=== PATIENT | female | born 1950 | race Caucasian/White ===

== ENCOUNTER → 2019-06-01 | Outpatient (CLI) | payer MEDICARE | LOC: LAB EV 09:35 → LAB SHORT 09:35 | DX: N39.0 Urinary tract infection, site not specified (principal) | CPT/HCPCS: 87077; 87086; 87186 ==

== ENCOUNTER → 2020-12-10 | Outpatient (CLI) | payer OTHER | END | disposition home or self-care (01) | LOC: LAB 11:10 → LAB SHORT 11:10 | DX: R30.9 Painful micturition, unspecified (principal) | CPT/HCPCS: 87077; 87086; 87186 ==

== ENCOUNTER → 2021-06-19 | Outpatient (CLI) | payer OTHER | LOC: LAB SHORT 15:42 → LAB 15:42 | DX: N39.0 Urinary tract infection, site not specified (principal) | CPT/HCPCS: 87077; 87086; 87186 ==

== ENCOUNTER 2024-10-17 19:00 | Inpatient (IN) | payer OTHER ==
[~2024-10-17] VITALS: Ht 165.1 cm; Wt 66.7 kg
[2024-10-17 20:27] LABS: BASOPHILS ABSOLUTE AUTO 0.03 K/mm3 (0.00-0.23); BASOPHILS PERCENT AUTO 0 % (0-2); EOSINOPHILS PERCENT AUTO 0 % (0-6); Hematocrit 39.5 % (33.0-51.0); Hemoglobin 13.6 g/dL (11.5-16.0); IMMATURE GRAN PERCENT AUTO 1 % (0-1); LYMPHOCYTES ABSOLUTE AUTO 0.29 K/mm3 (0.84-5.20); LYMPHOCYTES PERCENT AUTO 3 % (21-46); MONOCYTES ABSOLUTE AUTO 0.18 K/mm3 (0.16-1.47); MONOCYTES PERCENT AUTO 2 % (4-13); Mean Corpuscular HGB 31.6 pg (26.0-34.0); Mean Corpuscular HGB Conc 34.4 g/dL (31.5-36.5); Mean Corpuscular Volume 92 fL (80-100); Mean Platelet Volume 10.1 fL (9.1-12.4); NEUTROPHILS ABSOLUTE AUTO 10.15 K/mm3 (1.96-9.15); NEUTROPHILS PERCENT AUTO 94 % (41-73); Platelet Count 303 K/mm3 (150-400); RDW Coefficient Variation 12.9 % (11.7-14.2); RDW Standard Deviation 43.3 fL (35.1-46.3); White Blood Cell Count 10.75 K/mm3 (4.00-11.30)
[2024-10-17 20:47] LABS: Albumin, Blood 3.9 g/dL (3.4-5.0); Albumin/Globulin Ratio 1.1 (0.8-1.8); Bilirubin, Total 0.3 mg/dL (0.1-1.0); Bun/Creatinine Ratio 15.9 (12.0-20.0); Calcium, Blood 9.5 mg/dL (8.5-10.1); Creatinine, Blood 0.88 mg/dL (0.40-1.00); Globulin, Blood 3.5 g/dL (2.2-4.0); Potassium, Blood 3.4 mmol/L (3.5-5.5); Total Protein, Blood 7.4 g/dL (6.4-8.2)
[2024-10-18] MEDS ORDERED: Ibuprofen 600 MG Tab PO ONE (02:15)
[2024-10-18] MEDS ORDERED: FLU VACC TS2024-25(6MOS UP)/PF 45 MCG/0.5 ML SYRINGE IM ONE (02:50)
[2024-10-18] MEDS ORDERED: Guaifenesin/Dextromethorphan Syrup 5 ML UDC PO PRN (02:50)
[2024-10-18] MEDS ORDERED: Ondansetron HCl 2 MG / ML 2ML Vial IV PRN (02:55)
[2024-10-18] MEDS ORDERED: Ipratropium/Albuterol SulF 2.5-0.5MG/3 ML Amp INH PRN (02:55)
[2024-10-18] MEDS ORDERED: Insulin Glargine-Yfgn 100 Unit/mL 3 ML SYR SC SCH (03:00)
[2024-10-18] MEDS ORDERED: Azithromycin 500 MG in NS 250 ML IV SCH (03:44)
[2024-10-18] MEDS ORDERED: Potassium Chloride 40 MEQ in NS 250 ML IV ONE (03:45)
[2024-10-18 03:57] LABS: Influenza A, PCR NEGATIVE (NEGATIVE); Influenza B, PCR NEGATIVE (NEGATIVE); Resp Syncytial Virus, PCR NEGATIVE (NEGATIVE); SARS-Cov-2 (COVID-19) PCR, MMC NEGATIVE (NEGATIVE)
[2024-10-18] MEDS ORDERED: LOSA50 PO (03:59)
[2024-10-18] MEDS ORDERED: IPRAT-ALBUT 0.5-3 ML INH (04:00)
[2024-10-18] MEDS ORDERED: ALBU90OI INH (04:00)
[2024-10-18] MEDS ORDERED: MethylPREDNISolone Sod Succ 125 MG Vial IV SCH (06:00)
[2024-10-18 06:33] LABS: Albumin, Blood 3.6 g/dL (3.4-5.0); Albumin/Globulin Ratio 1.3 (0.8-1.8); Bilirubin, Total 0.4 mg/dL (0.1-1.0); Bun/Creatinine Ratio 19.8 (12.0-20.0); Calcium, Blood 8.9 mg/dL (8.5-10.1); Creatinine, Blood 0.66 mg/dL (0.40-1.00); Globulin, Blood 2.8 g/dL (2.2-4.0); Total Protein, Blood 6.4 g/dL (6.4-8.2)
[2024-10-18] MEDS ORDERED: Albuterol HFA200 ACT/6.7 GM INH INH PRN (06:35)
[2024-10-18 06:38] LABS: Potassium, Blood 6.7 mmol/L (3.5-5.5)
[2024-10-18 07:00] LABS: BASOPHILS ABSOLUTE AUTO 0.05 K/mm3 (0.00-0.23); BASOPHILS PERCENT AUTO 0 % (0-2); EOSINOPHILS PERCENT AUTO 0 % (0-6); Hematocrit 36.1 % (33.0-51.0); Hemoglobin 12.6 g/dL (11.5-16.0); IMMATURE GRAN ABSOLUTE AUTO 0.24 K/mm3 (0.00-0.10); IMMATURE GRAN PERCENT AUTO 1 % (0-1); LYMPHOCYTES ABSOLUTE AUTO 0.61 K/mm3 (0.84-5.20); LYMPHOCYTES PERCENT AUTO 3 % (21-46); MONOCYTES ABSOLUTE AUTO 1.38 K/mm3 (0.16-1.47); MONOCYTES PERCENT AUTO 6 % (4-13); Mean Corpuscular HGB Conc 34.9 g/dL (31.5-36.5); Mean Corpuscular Volume 92 fL (80-100); Mean Platelet Volume 9.5 fL (9.1-12.4); NEUTROPHILS ABSOLUTE AUTO 21.96 K/mm3 (1.96-9.15); NEUTROPHILS PERCENT AUTO 91 % (41-73); Platelet Count 280 K/mm3 (150-400); RDW Coefficient Variation 12.9 % (11.7-14.2); RDW Standard Deviation 43.5 fL (35.1-46.3); Red Blood Cell Count 3.94 M/mm3 (3.80-5.20); White Blood Cell Count 24.24 K/mm3 (4.00-11.30)
[2024-10-18] MEDS ORDERED: Insulin Human Lispro 100 Units/ML 3ML Syringe SC SCH (07:30)
[2024-10-18] MEDS ORDERED: Enoxaparin 40 MG/0.4 ML SYR SC SCH (09:00)
[2024-10-18] MEDS ORDERED: Losartan Potassium 50 MG Tab PO SCH (09:00)
[2024-10-18 09:40] LABS: BASOPHILS ABSOLUTE AUTO 0.04 K/mm3 (0.00-0.23); BASOPHILS PERCENT AUTO 0 % (0-2); EOSINOPHILS PERCENT AUTO 0 % (0-6); Hematocrit 36.3 % (33.0-51.0); Hemoglobin 12.6 g/dL (11.5-16.0); IMMATURE GRAN ABSOLUTE AUTO 0.29 K/mm3 (0.00-0.10); IMMATURE GRAN PERCENT AUTO 1 % (0-1); LYMPHOCYTES ABSOLUTE AUTO 0.73 K/mm3 (0.84-5.20); LYMPHOCYTES PERCENT AUTO 3 % (21-46); MONOCYTES ABSOLUTE AUTO 1.42 K/mm3 (0.16-1.47); MONOCYTES PERCENT AUTO 5 % (4-13); Mean Corpuscular HGB 31.8 pg (26.0-34.0); Mean Corpuscular HGB Conc 34.7 g/dL (31.5-36.5); Mean Corpuscular Volume 92 fL (80-100); Mean Platelet Volume 9.7 fL (9.1-12.4); NEUTROPHILS ABSOLUTE AUTO 26.04 K/mm3 (1.96-9.15); NEUTROPHILS PERCENT AUTO 91 % (41-73); Platelet Count 282 K/mm3 (150-400); RDW Standard Deviation 43.3 fL (35.1-46.3); Red Blood Cell Count 3.96 M/mm3 (3.80-5.20); White Blood Cell Count 28.52 K/mm3 (4.00-11.30)
[2024-10-18 10:11] LABS: Bun/Creatinine Ratio 17.1 (12.0-20.0); Calcium, Blood 9.6 mg/dL (8.5-10.1); Creatinine, Blood 0.82 mg/dL (0.40-1.00); Potassium, Blood 3.6 mmol/L (3.5-5.5)
[2024-10-18] MEDS ORDERED: Ipratropium/Albuterol SulF 2.5-0.5MG/3 ML Amp INH SCH (12:05)
[2024-10-18] MEDS ORDERED: Albuterol 2.5 MG/3 ML VIAL INH PRN (12:05)
[2024-10-18] MEDS ORDERED: Ibuprofen 400 MG Tab PO PRN (13:05)
[2024-10-18] MEDS ORDERED: Mometasone/Formoterol MDI 100/5 mcg 13 GM INH SCH (13:10)
[2024-10-18 15:27] VITALS: BP 141/75
[2024-10-18] MEDS ORDERED: [UNRECOGNIZED DRUG - MIXTURE] NEB (15:57)
[2024-10-18] MEDS ORDERED: IBUP200 PO (15:58)
[2024-10-18] MEDS ORDERED: Flonase 0.05% N16 GM (15:59)
--- NOTE | 2024-10-18 17:03 | NUR ---
ADMISSION SUMMARY PT ADMITTED TO UNIT FOR COPD EXACERBATION. PT ARRIVES TO UNIT ABLE TO STAND AND AMBULATE TO BED INDEPENDENTLY WITHOUT DIFFICULTY. 2 L/MIN VIA NC IN PLACE TO MAINTAIN SPO2 ABOVE 92%. PT REPORTS SOB WITH EXERTION. PT DENIES PAIN. ADMISSION COMPLETED, MED REC COMPLETED. NO SKIN ISSUES. VITALS WNL. PT CURRENTLY RESTING IN HOSPITAL BED WITH BED IN LOWEST POSITION AND CALL LIGHT WITHIN REACH. PT ORIENTED TO ROOM AND CALL SYSTEM.
[2024-10-18 20:11] VITALS: BP 132/79
[2024-10-18 23:38] VITALS: BP 126/62
--- NOTE | 2024-10-19 04:15 | NUR ---
SHIFT SUMMARY: PT AOX4 IND IN ROOM. ON 2L OF O2 HERE, RA AT BASELINE. TOLERATING MEDICATIONS WELL JUST HAVING SOME PAIN FROM COUGHING UP A LOT OF SPUTUM. COMPLIANT WITH IS AND TREATMENT. PT VERY PLEASANT. NO ACUTE EVENTS OVER NIGHT. HAS REQUESTED 2 BREATHING TREATMENTS FOR COMFORT. PT DENIES CHEST PAIN. IN BED RESTING, BED IN LOWEST POSITION, CALL LIGHT IN REACH. CONTINUING CARE.
[2024-10-19 04:38] VITALS: BP 130/73
[2024-10-19 04:54] LABS: BASOPHILS ABSOLUTE AUTO 0.02 K/mm3 (0.00-0.23); BASOPHILS PERCENT AUTO 0 % (0-2); EOSINOPHILS PERCENT AUTO 0 % (0-6); Hemoglobin 11.7 g/dL (11.5-16.0); IMMATURE GRAN ABSOLUTE AUTO 0.19 K/mm3 (0.00-0.10); IMMATURE GRAN PERCENT AUTO 1 % (0-1); LYMPHOCYTES ABSOLUTE AUTO 0.61 K/mm3 (0.84-5.20); LYMPHOCYTES PERCENT AUTO 3 % (21-46); MONOCYTES ABSOLUTE AUTO 0.67 K/mm3 (0.16-1.47); MONOCYTES PERCENT AUTO 3 % (4-13); Mean Corpuscular HGB 31.7 pg (26.0-34.0); Mean Corpuscular HGB Conc 34.4 g/dL (31.5-36.5); Mean Corpuscular Volume 92 fL (80-100); Mean Platelet Volume 9.9 fL (9.1-12.4); NEUTROPHILS ABSOLUTE AUTO 20.79 K/mm3 (1.96-9.15); NEUTROPHILS PERCENT AUTO 93 % (41-73); Platelet Count 256 K/mm3 (150-400); RDW Coefficient Variation 13.3 % (11.7-14.2); RDW Standard Deviation 45.1 fL (35.1-46.3); Red Blood Cell Count 3.69 M/mm3 (3.80-5.20); White Blood Cell Count 22.28 K/mm3 (4.00-11.30)
[2024-10-19] MEDS ORDERED: Omeprazole 20 MG CapCR PO SCH (06:00)
[2024-10-19 06:37] LABS: Bun/Creatinine Ratio 27.3 (12.0-20.0); Calcium, Blood 8.9 mg/dL (8.5-10.1); Creatinine, Blood 0.95 mg/dL (0.40-1.00)
[2024-10-19 07:50] VITALS: BP 117/63
[2024-10-19] MEDS ORDERED: Azithromycin 500 MG in NS 250 ML IV SCH (09:00)
[2024-10-19 17:38] VITALS: BP 122/69
[2024-10-19] MEDS ORDERED: Losartan Potassium 50 MG Tab PO SCH (18:00)
--- NOTE | 2024-10-19 18:24 | NUR ---
PATIENT A/OX4, UP INDEPENDENTLY IN ROOM AND HALLS. RA AT REST AND 2LO2 WITH AMBULATION. DOES HAVE SOME DYSPNEA WITH EXERTION. SKIN INTACT. DENIES ANY PAIN OR DISCOMFORT. PLEASANT AND COOPERATIVE WITH CARE. NO NEW CONCERNS THIS SHIFT.
[2024-10-19 19:11] VITALS: BP 132/76
[2024-10-19] MEDS ORDERED: MethylPREDNISolone Sod Succ 125 MG Vial IV SCH (20:00)
[2024-10-19] MEDS ORDERED: Docusate Sodium 100 MG Cap PO SCH (21:00)
[2024-10-20 04:18] VITALS: BP 125/79
--- NOTE | 2024-10-20 05:17 | NUR ---
SHIFT SUMMARY: PT IS AOX4 AND IND IN THE ROOM. CALLS APPROPRIATELY AND IS ABLE TO MAKE NEEDS KNOWN. IS ON RA AT REST AND WHILE SLEEPING, USING UP TO 2L ON EXERTION SHE WALKS AROUND THE ROOM/ UNIT. STEADY GAIT AND KNOWS LIMITATIONS. ABLE TO MAKE NEEDS KNOWN. CALLS FOR RT BREATHING TREATMENTS EVERY 6-8 HRS. COMPLAINTS OF A COUGH, MEDICATED PER EMR. NO ACUTE EVENTS OVERNIGHT. PT IS RESTING IN BED, BED IN LOWEST POSITION, CALL LIGHT IN REACH. CONTINUING CARE.
[2024-10-20 05:53] LABS: BASOPHILS ABSOLUTE AUTO 0.04 K/mm3 (0.00-0.23); BASOPHILS PERCENT AUTO 0 % (0-2); EOSINOPHILS PERCENT AUTO 0 % (0-6); Hemoglobin 12.3 g/dL (11.5-16.0); IMMATURE GRAN ABSOLUTE AUTO 0.31 K/mm3 (0.00-0.10); IMMATURE GRAN PERCENT AUTO 2 % (0-1); LYMPHOCYTES ABSOLUTE AUTO 0.59 K/mm3 (0.84-5.20); LYMPHOCYTES PERCENT AUTO 3 % (21-46); MONOCYTES ABSOLUTE AUTO 0.98 K/mm3 (0.16-1.47); MONOCYTES PERCENT AUTO 5 % (4-13); Mean Corpuscular HGB 31.5 pg (26.0-34.0); Mean Corpuscular HGB Conc 34.2 g/dL (31.5-36.5); Mean Corpuscular Volume 92 fL (80-100); Mean Platelet Volume 9.8 fL (9.1-12.4); NEUTROPHILS ABSOLUTE AUTO 18.65 K/mm3 (1.96-9.15); NEUTROPHILS PERCENT AUTO 91 % (41-73); Platelet Count 295 K/mm3 (150-400); RDW Coefficient Variation 13.3 % (11.7-14.2); RDW Standard Deviation 45.1 fL (35.1-46.3); Red Blood Cell Count 3.91 M/mm3 (3.80-5.20); White Blood Cell Count 20.57 K/mm3 (4.00-11.30)
[2024-10-20 06:24] LABS: Calcium, Blood 9.3 mg/dL (8.5-10.1); Creatinine, Blood 1.03 mg/dL (0.40-1.00); Potassium, Blood 4.1 mmol/L (3.5-5.5)
[2024-10-20 08:48] VITALS: BP 124/66
[2024-10-20 14:41] VITALS: BP 121/57
--- NOTE | 2024-10-20 17:57 | NUR ---
MO ACUTE CHANGES THIS SHIFT. PATIENT ON RA AT REST AND 2-3LO2 WITH ACTIVITY. WALKING INDEPENDENTLY IN HALLS. TOELRATING DIET. REFUSING BLOOD SUGAR CHECKS. TOLERATING REGULAR DIET AND REPORTS APPETITE IS IMPROVING. COOPERATIVE WITH CARE AND MAKES NEEDS KNOWN.
[2024-10-20 18:06] VITALS: BP 125/68
[2024-10-20 19:33] VITALS: BP 120/65
[2024-10-20] MEDS ORDERED: MethylPREDNISolone Sod Succ 125 MG Vial IV SCH (21:00)
--- NOTE | 2024-10-21 04:41 | NUR ---
SHIFT SUMMARY: PT AOX4 IND IN THE ROOM. RA AT REST AND WALKING AROUND ON 2L FROM PORTABLE TANK OCCASIONALLY. HAS HAD 2 WALKS AROUND THE UNIT TONIGHT. PT COMPLAINS OF SOME DISCOMFORT IN ABDOMINAL MUSCLES FROM COUGHING SO MUCH. MEDICATED PER EMR. HAS BEEN TAKING THE COUGH SYRUP TO AID IN PRODUCTIVE COUGH. ANXIOUS TO GO HOME, WANTS TO HAVE THEIR HOME O2 EVAL SO THEY CAN GET HOME BEFORE THE WEEKEND. PT VERY PLEASANT AND POLITE. PT SLEEPING IN BED, BED IN LOWEST POSITION, CALL LIGHT IN REACH. CONTINUING CARE.
[2024-10-21 05:09] VITALS: BP 140/61
[2024-10-21 05:46] LABS: BASOPHILS ABSOLUTE AUTO 0.04 K/mm3 (0.00-0.23); BASOPHILS PERCENT AUTO 0 % (0-2); EOSINOPHILS PERCENT AUTO 0 % (0-6); Hematocrit 35.7 % (33.0-51.0); Hemoglobin 12.5 g/dL (11.5-16.0); IMMATURE GRAN ABSOLUTE AUTO 0.58 K/mm3 (0.00-0.10); IMMATURE GRAN PERCENT AUTO 4 % (0-1); LYMPHOCYTES ABSOLUTE AUTO 0.76 K/mm3 (0.84-5.20); LYMPHOCYTES PERCENT AUTO 6 % (21-46); MONOCYTES ABSOLUTE AUTO 0.82 K/mm3 (0.16-1.47); MONOCYTES PERCENT AUTO 6 % (4-13); Mean Corpuscular HGB 32.1 pg (26.0-34.0); Mean Corpuscular Volume 92 fL (80-100); Mean Platelet Volume 9.9 fL (9.1-12.4); NEUTROPHILS ABSOLUTE AUTO 11.05 K/mm3 (1.96-9.15); NEUTROPHILS PERCENT AUTO 83 % (41-73); Platelet Count 293 K/mm3 (150-400); RDW Coefficient Variation 13.2 % (11.7-14.2); RDW Standard Deviation 44.3 fL (35.1-46.3); White Blood Cell Count 13.25 K/mm3 (4.00-11.30)
[2024-10-21 06:12] LABS: Bun/Creatinine Ratio 30.6 (12.0-20.0); Creatinine, Blood 1.11 mg/dL (0.40-1.00); Potassium, Blood 4.2 mmol/L (3.5-5.5)
[2024-10-21 07:33] VITALS: BP 121/66
[2024-10-21] MEDS ORDERED: Fluticasone 0.05% Nasal Spray SCH (09:00)
[2024-10-21] MEDS ORDERED: Diabetic GuaiFENesin 100 MG/5 ML 5MLUDC PO SCH (11:25)
[2024-10-21] MEDS ORDERED: GuaiFENesin 600 MG TabCR PO SCH ×2 (11:35→11:39)
[2024-10-21] MEDS ORDERED: GUAI600T33 PO (14:31)
[2024-10-21] MEDS ORDERED: IPRAT-ALBUT 0.5-3 ML INH (14:32)
[2024-10-21] MEDS ORDERED: OMEP20ER PO (14:32)
[2024-10-21] MEDS ORDERED: VISBIOME 112.51 EACH PO (14:32)
[2024-10-21] MEDS ORDERED: AZIT250 PO (14:35)
[2024-10-21] MEDS ORDERED: FLUTICASONE-SA1 EAC1 INH (14:36)
[2024-10-21] MEDS ORDERED: PRED20 PO (14:36)
--- NOTE | 2024-10-21 16:39 | NUR ---
DISCHARGE SUMMARY PATIENT WITH NO ACUTE EVENTS DURING SHIFT, SHE IS TOLERATING EXERTION WITH 2-3LPM OXYGEN NC. PATIENT MEDICATION AND EDUCATION PACKET PRINTED AND REVIEWED WITH PATIENT. SIGNATURE OBTAINED. PATIENT DENIES ANY QUESTIONS. SHE LEFT UNIT WITH MARYANA RAMIREZ VIA TRANSPORT CHAIR AT 1610 AND LEAVING VIA PRIVATE VEHICLE WITH .
[2024-10-21] MEDS ORDERED: Lactobacil 2-S.Thermo-Bifido 1 1 Cap PO SCH (21:00)
== END 2024-10-21 16:10 | disposition home or self-care (01) | DRG 189 ==
LOC: ER 19:00 → ERHOLD 10-18 02:48 → MEDS 10-18 15:28
PROVIDERS: Family Medicine; Student in an Organized Health Care Education/Training Program; ADMIT Internal Medicine
DX: J96.01 Acute respiratory failure with hypoxia (principal); J44.1 Chronic obstructive pulmonary disease with (acute) exacerbation; J44.0 Chronic obstructive pulmonary disease with (acute) lower respiratory infection; E87.6 Hypokalemia; R73.9 Hyperglycemia, unspecified; J20.9 Acute bronchitis, unspecified; K21.9 Gastro-esophageal reflux disease without esophagitis; I12.9 Hypertensive chronic kidney disease with stage 1 through stage 4 chronic kidney disease, or unspecified chronic kidney disease; N18.30 Chronic kidney disease, stage 3 unspecified; Z87.891 Personal history of nicotine dependence
CPT/HCPCS: 0241U; 36415; 71046; 80048; 80053; 82947; 83036; 83880; 84484; 85025; 87070; 87205; 93005; 93010; 94640; 94664; 94760; 94761; 94762; 99285-25; A9270; J0456; J1650; J1815; J2919; J3480; J7050

== ENCOUNTER → 2025-07-16 | Outpatient (CLI) | payer OTHER ==
[~2025-07-16] MED LIST: ALBU90OI INH; AZIT250 PO; FLUTICASONE-SA1 EAC1 INH; Flonase 0.05% N16 GM; GUAI600T33 PO; IBUP200 PO; IPRAT-ALBUT 0.5-3 ML INH; LOSA50 PO; OMEP20ER PO; PRED20 PO; VISBIOME 112.51 EACH PO; [UNRECOGNIZED DRUG - MIXTURE] NEB
== END ==
LOC: LAB SHORT 19:29 → LAB 19:29
DX: N39.0 Urinary tract infection, site not specified (principal); R31.9 Hematuria, unspecified
CPT/HCPCS: 87077; 87086; 87186

== ENCOUNTER → 2025-07-28 | Outpatient (CLI) | payer OTHER | LOC: LAB SHORT 08:46 → LAB 08:46 | DX: N39.0 Urinary tract infection, site not specified (principal); R31.9 Hematuria, unspecified | CPT/HCPCS: 87077; 87086; 87186 ==